=== PATIENT | female | born 1990 | race Caucasian/White ===

== ENCOUNTER 2020-02-08 19:08 | Inpatient (IN) | payer MEDICARE, MEDICAID ==
[~2020-02-08] VITALS: Ht 147.3 cm; Wt 121.1 kg
[~2020-02-08 19:08] MED LIST: ALBUPOW26 NEB; BACL10TA GT; FURO1TAB33 GT; IBUP100S11 GT; LACTCAP35 GT; LEVE100012 GT; LEVO100I GT; LORA0.5T20 GT; MAX35OO GT; NUTR1LIQ GT; POTA10SO11 GT; RANI15SY GT; ZINC TOP
[2020-02-08] MEDS ORDERED: MORPHINE SULFATE 4 MG/ML SYR/VIAL IV PRN (23:30)
[2020-02-08] MEDS ORDERED: ONDANSETRON HCL 4 MG/2 ML VIAL IV PRN (23:30)
[2020-02-08] MEDS ORDERED: ALBUTEROL SULF 2.5 MG/0.5ML(0.5%) NEB SOLN NEB PRN (23:30)
[2020-02-08] MEDS ORDERED: TEMAZEPAM 15 MG CAP PO PRN (23:30)
[2020-02-08 23:54] LABS: Basophils # (auto) 0 10 ^3/uL (0-0.2); Basophils % (auto) 0.4 % (0.0-2.0); Eosinophils # (auto) 0 10 ^3/uL (0-0.8); Eosinophils % (auto) 0.1 % (0.0-7.0); Hematocrit 45.3 % (36.0-46.0); Hemoglobin 15.5 g/dL (12.2-16.2); Lymphocytes % (auto) 11.3 % (10.0-50.0); Mean Corpuscular Hemoglobin 34.7 pg (28.0-32.0); Mean Corpuscular Hgb Conc. 34.2 g/dL (32.0-36.0); Mean Corpuscular Volume 101.3 fL (80.0-100.0); Monocytes # (auto) 0.4 10 ^3/uL (0-1.3); Monocytes % (auto) 4.9 % (0.0-12.0); Neutrophils # (auto) 7.1 10 ^3/uL (1.6-8.6); Neutrophils % (auto) 83.3 % (37.0-80.0); Platelet Count (auto) 169 10^3/uL (140-450); Red Blood Cells 4.48 10^6/uL (4.0-5.20); Red Cell Distribution Width 12.5 % (11.8-14.3); White Blood Cell 8.6 10^3/uL (4.4-10.8)
[2020-02-09 00:09] LABS: Partial Thromboplastin Time 24.4 sec (23.64-32.05)
[2020-02-09 00:16] LABS: Albumin 3.6 g/dL (3.4-5.0); BUN/Creatinine Ratio 22.4; Calcium 9.1 mg/dL (8.5-10.1); Potassium 3.6 mmol/L (3.5-5.1)
[2020-02-09 00:19] LABS: Bilirubin, Total 0.4 mg/dL (0.2-1.0); Total Protein 7.6 g/dL (6.4-8.2)
[2020-02-09] MEDS ORDERED: MORPHINE SULF INJ 2 MG/ML SYRINGE 1ML IV PRN (00:45)
[2020-02-09] MEDS ORDERED: NITROGLYCERIN 0.4 MG SL TAB SL PRN (00:45)
[2020-02-09 01:38] VITALS: BP 115/67
[2020-02-09 05:00] VITALS: BP 95/60
[2020-02-09] MEDS: LEVOTHYROXINE SODIUM 50 MCG TAB PO SCH (06:58)
[2020-02-09 08:50] VITALS: BP 101/67
[2020-02-09] MEDS: FAMOTIDINE 20 MG TAB PO SCH ×2 (09:17→22:42)
[2020-02-09] MEDS: levETIRAcetam 500 MG TAB PO SCH ×2 (09:17→22:42)
[2020-02-09] MEDS: FUROSEMIDE 40 MG TAB GT SCH (09:18)
[2020-02-09] MEDS ORDERED: NUTR1LIQ PO (09:49)
[2020-02-09] MEDS ORDERED: POTA10TA51 PO (09:49)
[2020-02-09] MEDS: HYDROcodone-ACET 5/325MG TAB PO PRN (12:25)
[2020-02-09 13:00] VITALS: BP 105/59
[2020-02-09] MEDS: Osmolite 1.2 Cal One Liter GT SCH (13:05)
[2020-02-09 17:00] VITALS: BP 102/55
[2020-02-09 22:00] VITALS: BP 91/51
[2020-02-10 05:00] VITALS: BP 98/52
[2020-02-10] MEDS: LEVOTHYROXINE SODIUM 50 MCG TAB PO SCH (06:18)
[2020-02-10 08:00] VITALS: BP 107/67
[2020-02-10 09:00] VITALS: BP 93/63
[2020-02-10] MEDS: FAMOTIDINE 20 MG TAB PO SCH ×2 (10:51→21:42)
[2020-02-10] MEDS: levETIRAcetam 500 MG TAB PO SCH ×2 (10:51→21:41)
[2020-02-10] MEDS: FUROSEMIDE 40 MG TAB GT SCH (10:59)
[2020-02-10 13:00] VITALS: BP 100/66
[2020-02-10] MEDS: Osmolite 1.2 Cal One Liter GT SCH (15:53)
[2020-02-10 17:00] VITALS: BP 117/66
[2020-02-10 21:45] VITALS: BP 103/71
[2020-02-11 05:00] VITALS: BP 98/58
[2020-02-11] MEDS: LEVOTHYROXINE SODIUM 50 MCG TAB PO SCH (06:08)
[2020-02-11] MEDS: HYDROcodone-ACET 5/325MG TAB PO PRN ×2 (06:09→12:43)
[2020-02-11] MEDS ORDERED: MORPHINE SULF INJ 2 MG/ML SYRINGE 1ML IV PRN (08:15)
[2020-02-11 09:00] VITALS: BP 94/51
[2020-02-11] MEDS: FUROSEMIDE 40 MG TAB GT SCH (10:08)
[2020-02-11] MEDS: levETIRAcetam 500 MG TAB PO SCH ×2 (10:08→21:26)
[2020-02-11] MEDS: FAMOTIDINE 20 MG TAB PO SCH ×2 (10:08→21:27)
[2020-02-11 13:00] VITALS: BP 94/52
[2020-02-11 17:00] VITALS: BP 91/58
[2020-02-11] MEDS: Osmolite 1.2 Cal One Liter GT SCH (18:21)
[2020-02-11 19:39] VITALS: BP 91/58
[2020-02-11 21:49] VITALS: BP 95/56
[2020-02-12 05:00] VITALS: BP 93/53
[2020-02-12] MEDS: HYDROcodone-ACET 5/325MG TAB PO PRN ×2 (06:26→16:55)
[2020-02-12] MEDS: LEVOTHYROXINE SODIUM 50 MCG TAB PO SCH (06:27)
[2020-02-12 09:00] VITALS: BP 94/53
[2020-02-12] MEDS: levETIRAcetam 500 MG TAB PO SCH ×2 (09:18→21:14)
[2020-02-12] MEDS: FUROSEMIDE 40 MG TAB GT SCH (09:18)
[2020-02-12] MEDS: FAMOTIDINE 20 MG TAB PO SCH ×2 (09:18→21:13)
[2020-02-12 13:00] VITALS: BP 98/59
[2020-02-12 15:35] LABS: Eosinophils # (auto) 0 10 ^3/uL (0-0.8)
[2020-02-12 15:37] LABS: Basophils # (auto) 0.1 10 ^3/uL (0-0.2); Basophils % (auto) 0.9 % (0.0-2.0); Eosinophils % (auto) 0.6 % (0.0-7.0); Hematocrit 42.6 % (36.0-46.0); Hemoglobin 14.3 g/dL (12.2-16.2); Lymphocytes # (auto) 1.4 10 ^3/uL (0.4-5.4); Lymphocytes % (auto) 23.4 % (10.0-50.0); Mean Corpuscular Hemoglobin 34.3 pg (28.0-32.0); Mean Corpuscular Hgb Conc. 33.6 g/dL (32.0-36.0); Mean Corpuscular Volume 102.1 fL (80.0-100.0); Monocytes # (auto) 0.3 10 ^3/uL (0-1.3); Monocytes % (auto) 5.8 % (0.0-12.0); Neutrophils # (auto) 4.2 10 ^3/uL (1.6-8.6); Neutrophils % (auto) 69.3 % (37.0-80.0); Platelet Count (auto) 161 10^3/uL (140-450); Red Blood Cells 4.17 10^6/uL (4.0-5.20); Red Cell Distribution Width 12.2 % (11.8-14.3)
[2020-02-12 16:00] LABS: Calcium 9.3 mg/dL (8.5-10.1); Potassium 3.7 mmol/L (3.5-5.1)
[2020-02-12 16:02] LABS: BUN/Creatinine Ratio 35.4
[2020-02-12 16:55] VITALS: BP 99/57
[2020-02-12] MEDS: ACETAMINOPHEN 650 mg PER 20 mL UD GT PRN (21:15)
[2020-02-12 21:56] VITALS: BP 89/49
[2020-02-13 04:41] VITALS: BP 103/59
[2020-02-13] MEDS: LEVOTHYROXINE SODIUM 50 MCG TAB PO SCH (06:05)
[2020-02-13 08:51] VITALS: BP 97/55
[2020-02-13] MEDS: HYDROcodone-ACET 5/325MG TAB PO PRN (11:27)
[2020-02-13] MEDS: FAMOTIDINE 20 MG TAB PO SCH ×2 (11:27→22:30)
[2020-02-13] MEDS: FUROSEMIDE 40 MG TAB GT SCH (11:27)
[2020-02-13] MEDS: levETIRAcetam 500 MG TAB PO SCH ×2 (11:27→22:30)
[2020-02-13 13:00] VITALS: BP 107/65
[2020-02-13] MEDS ORDERED: GASTROGRAFIN 30 ML SOL ONE (16:56)
[2020-02-13 17:00] VITALS: BP 103/62
[2020-02-13 20:00] VITALS: BP 92/64
[2020-02-13 22:00] VITALS: BP 92/64
[2020-02-14] MEDS: SOD CHL 0.45% 1,000 ML IV SCH ×3 (03:14→21:35)
[2020-02-14 05:00] VITALS: BP 103/60
[2020-02-14] MEDS: LEVOTHYROXINE SODIUM 50 MCG TAB PO SCH (07:17)
[2020-02-14 08:00] VITALS: BP 102/47
[2020-02-14 09:00] VITALS: BP 102/47
[2020-02-14] MEDS: FUROSEMIDE 40 MG TAB GT SCH (10:00)
[2020-02-14] MEDS: FAMOTIDINE 20 MG TAB PO SCH (11:08)
[2020-02-14] MEDS: levETIRAcetam 500 MG TAB PO SCH (11:09)
[2020-02-14 11:32] LABS: Basophils # (auto) 0.1 10 ^3/uL (0-0.2); Eosinophils # (auto) 0 10 ^3/uL (0-0.8); Hemoglobin 12.6 g/dL (12.2-16.2); Lymphocytes # (auto) 1.2 10 ^3/uL (0.4-5.4); Platelet Count (auto) 153 10^3/uL (140-450)
[2020-02-14 11:34] LABS: Basophils % (auto) 1.6 % (0.0-2.0); Eosinophils % (auto) 0.8 % (0.0-7.0); Hematocrit 37.7 % (36.0-46.0); Lymphocytes % (auto) 24.9 % (10.0-50.0); Mean Corpuscular Hemoglobin 34.2 pg (28.0-32.0); Mean Corpuscular Hgb Conc. 33.3 g/dL (32.0-36.0); Mean Corpuscular Volume 102.5 fL (80.0-100.0); Monocytes # (auto) 0.4 10 ^3/uL (0-1.3); Monocytes % (auto) 8.5 % (0.0-12.0); Neutrophils # (auto) 3.2 10 ^3/uL (1.6-8.6); Neutrophils % (auto) 64.2 % (37.0-80.0); Nucleated Red Blood Cells % 0.1 %; Red Blood Cells 3.68 10^6/uL (4.0-5.20); Red Cell Distribution Width 12.2 % (11.8-14.3); White Blood Cell 4.9 10^3/uL (4.4-10.8)
[2020-02-14 11:55] LABS: Albumin 2.7 g/dL (3.4-5.0); Calcium 8.2 mg/dL (8.5-10.1); Potassium 3.3 mmol/L (3.5-5.1)
[2020-02-14 12:01] LABS: BUN/Creatinine Ratio 42.6; Bilirubin, Total 0.5 mg/dL (0.2-1.0); Total Protein 6.4 g/dL (6.4-8.2)
[2020-02-14 13:00] VITALS: BP 100/57
[2020-02-14 17:00] VITALS: BP 107/51
[2020-02-14] MEDS ORDERED: HYDROcodone-ACET 5/325MG TAB GT PRN (20:45)
[2020-02-14] MEDS ORDERED: TEMAZEPAM 15 MG CAP GT PRN (20:45)
[2020-02-14] MEDS: levETIRAcetam 500 MG/5ML ORAL SOLN UD GT SCH (21:34)
[2020-02-14] MEDS: FAMOTIDINE 20 MG TAB GT SCH (21:35)
[2020-02-14 22:00] VITALS: BP 88/46
[2020-02-15] VITALS (7 sets, daily range): BP systolic 88–102; BP diastolic 46–60
[2020-02-15] MEDS: Osmolite 1.2 Cal One Liter GT SCH
[2020-02-15 05:23] LABS: Basophils # (auto) 0.1 10 ^3/uL (0-0.2); Basophils % (auto) 1.3 % (0.0-2.0); Eosinophils # (auto) 0 10 ^3/uL (0-0.8); Hemoglobin 11.1 g/dL (12.2-16.2); Mean Corpuscular Hgb Conc. 33.1 g/dL (32.0-36.0); Neutrophils # (auto) 2.8 10 ^3/uL (1.6-8.6); Red Blood Cells 3.23 10^6/uL (4.0-5.20)
[2020-02-15 05:25] LABS: Hematocrit 33.5 % (36.0-46.0); Lymphocytes % (auto) 24.2 % (10.0-50.0); Mean Corpuscular Hemoglobin 34.4 pg (28.0-32.0); Mean Corpuscular Volume 103.8 fL (80.0-100.0); Monocytes # (auto) 0.4 10 ^3/uL (0-1.3); Neutrophils % (auto) 64.5 % (37.0-80.0); Platelet Count (auto) 137 10^3/uL (140-450); Red Cell Distribution Width 12.3 % (11.8-14.3); White Blood Cell 4.3 10^3/uL (4.4-10.8)
[2020-02-15 05:43] LABS: Albumin 2.5 g/dL (3.4-5.0); Calcium 7.8 mg/dL (8.5-10.1); Potassium 3.8 mmol/L (3.5-5.1)
[2020-02-15 05:49] LABS: Bilirubin, Total 0.5 mg/dL (0.2-1.0); Total Protein 5.8 g/dL (6.4-8.2)
[2020-02-15] MEDS: LEVOTHYROXINE SODIUM 50 MCG TAB GT SCH (06:17)
[2020-02-15] MEDS ORDERED: D5W 5% 1,000 ML IV SCH (09:30)
[2020-02-15] MEDS: levETIRAcetam 500 MG/5ML ORAL SOLN UD GT SCH ×2 (11:35→21:43)
[2020-02-15] MEDS: FAMOTIDINE 20 MG TAB GT SCH ×2 (11:36→21:44)
[2020-02-15] MEDS ORDERED: ALBUMIN 25% 100 ML IV ONE (13:30)
[2020-02-15] MEDS: FREE WATER GT SCH ×3 (15:29→21:43)
[2020-02-16] MEDS: FREE WATER GT SCH ×4 (01:52→18:00)
[2020-02-16 05:00] VITALS: BP 111/56
[2020-02-16] MEDS: LEVOTHYROXINE SODIUM 50 MCG TAB GT SCH (06:12)
[2020-02-16 08:00] VITALS: BP 101/75
[2020-02-16] MEDS: ACETAMINOPHEN 650 mg PER 20 mL UD GT PRN (09:55)
[2020-02-16] MEDS: FAMOTIDINE 20 MG TAB GT SCH ×2 (09:55→21:54)
[2020-02-16] MEDS: levETIRAcetam 500 MG/5ML ORAL SOLN UD GT SCH ×2 (09:56→21:54)
[2020-02-16 10:21] LABS: Basophils # (auto) 0 10 ^3/uL (0-0.2); Eosinophils # (auto) 0 10 ^3/uL (0-0.8); Lymphocytes # (auto) 0.6 10 ^3/uL (0.4-5.4); Monocytes # (auto) 0.2 10 ^3/uL (0-1.3); Red Cell Distribution Width 12.1 % (11.8-14.3); White Blood Cell 4.8 10^3/uL (4.4-10.8)
[2020-02-16 10:22] LABS: Eosinophils % (auto) 0.5 % (0.0-7.0); Hematocrit 33.7 % (36.0-46.0); Hemoglobin 11.5 g/dL (12.2-16.2); Lymphocytes % (auto) 12.2 % (10.0-50.0); Mean Corpuscular Hemoglobin 34.8 pg (28.0-32.0); Mean Corpuscular Hgb Conc. 34.1 g/dL (32.0-36.0); Mean Corpuscular Volume 102.2 fL (80.0-100.0); Monocytes % (auto) 4.2 % (0.0-12.0); Neutrophils # (auto) 3.9 10 ^3/uL (1.6-8.6); Neutrophils % (auto) 82.1 % (37.0-80.0); Platelet Count (auto) 140 10^3/uL (140-450)
[2020-02-16 10:36] LABS: Albumin 3.1 g/dL (3.4-5.0); Calcium 8.5 mg/dL (8.5-10.1); Potassium 3.6 mmol/L (3.5-5.1)
[2020-02-16 10:40] LABS: BUN/Creatinine Ratio 26.9; Bilirubin, Total 0.6 mg/dL (0.2-1.0); Total Protein 6.3 g/dL (6.4-8.2)
[2020-02-16 11:58] VITALS: BP 96/59
[2020-02-16 16:54] VITALS: BP 95/56
[2020-02-16 22:00] VITALS: BP 98/54
[2020-02-17 05:00] VITALS: BP 95/43
[2020-02-17 05:09] LABS: Basophils # (auto) 0 10 ^3/uL (0-0.2); Basophils % (auto) 1.2 % (0.0-2.0); Eosinophils # (auto) 0.1 10 ^3/uL (0-0.8); Eosinophils % (auto) 1.6 % (0.0-7.0); Hematocrit 32.2 % (36.0-46.0); Hemoglobin 10.9 g/dL (12.2-16.2); Lymphocytes # (auto) 1.2 10 ^3/uL (0.4-5.4); Lymphocytes % (auto) 35.6 % (10.0-50.0); Mean Corpuscular Hemoglobin 34.7 pg (28.0-32.0); Mean Corpuscular Volume 102.1 fL (80.0-100.0); Monocytes # (auto) 0.3 10 ^3/uL (0-1.3); Monocytes % (auto) 8.1 % (0.0-12.0); Neutrophils # (auto) 1.8 10 ^3/uL (1.6-8.6); Neutrophils % (auto) 53.5 % (37.0-80.0); Nucleated Red Blood Cells % 0.1 %; Platelet Count (auto) 158 10^3/uL (140-450); Red Blood Cells 3.15 10^6/uL (4.0-5.20); White Blood Cell 3.4 10^3/uL (4.4-10.8)
[2020-02-17 05:28] LABS: Potassium 3.6 mmol/L (3.5-5.1)
[2020-02-17 05:35] LABS: Albumin 2.7 g/dL (3.4-5.0); BUN/Creatinine Ratio 22.8; Bilirubin, Total 0.5 mg/dL (0.2-1.0); Calcium 8.1 mg/dL (8.5-10.1); Total Protein 5.8 g/dL (6.4-8.2)
[2020-02-17] MEDS: FREE WATER GT SCH ×4 (06:00→18:00)
[2020-02-17] MEDS: LEVOTHYROXINE SODIUM 50 MCG TAB GT SCH (06:35)
[2020-02-17 08:00] VITALS: BP 94/54
[2020-02-17 08:49] VITALS: BP 94/54
[2020-02-17] MEDS: levETIRAcetam 500 MG/5ML ORAL SOLN UD GT SCH ×2 (10:00→21:36)
[2020-02-17] MEDS: FAMOTIDINE 20 MG TAB GT SCH ×2 (10:00→21:36)
[2020-02-17] MEDS ORDERED: KETOROLAC TROMETH 30 MG/ML 1ML VIAL ONE (11:40)
[2020-02-17] MEDS ORDERED: VANCOMYCIN HCL 1000 MG VL ONE (11:40)
[2020-02-17] MEDS ORDERED: BUPIVACAINE W/ EPINEPH 0.25% INJ 50ML MDV ONE (11:44)
[2020-02-17] MEDS ORDERED: fentaNYL CITRATE 100 MCG/2 ML VL ONE (11:55)
[2020-02-17] MEDS ORDERED: MIDAZOLAM HCL 1MG/1ML-2 ML VIAL ONE (11:55)
[2020-02-17] MEDS ORDERED: DexAMETHasone SOD PHOS 10MG/1ML VIAL INJ ONE (11:56)
[2020-02-17] MEDS ORDERED: PHENYLEPHRINE HCL 10 MG/ML VL IV ONE (12:25)
[2020-02-17] MEDS ORDERED: PROPOFOL 10 MG/ML 20 ML IV ONE (12:25)
[2020-02-17] MEDS ORDERED: MIDAZOLAM HCL 1MG/1ML-2 ML VIAL IV PRN (13:15)
[2020-02-17] MEDS ORDERED: ePHEDrine SULFATE 50 MG/ML AMP IV PRN (13:15)
[2020-02-17] MEDS ORDERED: MORPHINE SULFATE 4 MG/ML SYR/VIAL IV PRN (13:15)
[2020-02-17 14:12] VITALS: BP 107/50
[2020-02-17 17:00] VITALS: BP 99/52
[2020-02-17 22:00] VITALS: BP 109/58
[2020-02-17 22:11] LABS: INR 1.01 (0.9-1.15)
[2020-02-18] VITALS (7 sets, daily range): BP systolic 87–148; BP diastolic 40–60
[2020-02-18] MEDS: FREE WATER GT SCH ×4 (06:13→18:04)
[2020-02-18] MEDS: LEVOTHYROXINE SODIUM 50 MCG TAB GT SCH (06:14)
[2020-02-18] MEDS: FAMOTIDINE 20 MG TAB GT SCH ×2 (11:33→21:26)
[2020-02-18] MEDS: levETIRAcetam 500 MG/5ML ORAL SOLN UD GT SCH ×2 (11:33→21:26)
[2020-02-18] MEDS: ACETAMINOPHEN 650 mg PER 20 mL UD GT PRN (16:28)
[2020-02-19] MEDS: FREE WATER GT SCH ×4 (00:47→18:48)
[2020-02-19 05:00] VITALS: BP 93/43
[2020-02-19] MEDS: Osmolite 1.2 Cal One Liter GT SCH (05:04)
[2020-02-19] MEDS: LEVOTHYROXINE SODIUM 50 MCG TAB GT SCH (05:12)
[2020-02-19] MEDS: ACETAMINOPHEN 650 mg PER 20 mL UD GT PRN ×2 (05:12→22:10)
[2020-02-19 08:00] VITALS: BP 74/39
[2020-02-19 08:51] VITALS: BP 74/39
[2020-02-19] MEDS: FAMOTIDINE 20 MG TAB GT SCH ×2 (11:58→22:10)
[2020-02-19] MEDS: levETIRAcetam 500 MG/5ML ORAL SOLN UD GT SCH ×2 (11:58→22:10)
[2020-02-19 13:00] VITALS: BP 101/40
[2020-02-19 17:00] VITALS: BP 92/47
[2020-02-19 20:51] VITALS: BP 97/55
[2020-02-19 23:02] LABS: Urine Bacteria MANY /hpf (None Seen); Urine Blood Negative /uL (Negative); Urine Specific Gravity 1.021 (1.001-1.035); Urine WBC 80 /hpf (0 - 5); Urine WBC Clumps PRESENT /hpf (None Seen)
[2020-02-20 00:08] LABS: Red Cell Distribution Width 12.5 % (11.8-14.3)
[2020-02-20 00:11] LABS: Hematocrit 31.5 % (36.0-46.0); Hemoglobin 10.5 g/dL (12.2-16.2); Mean Corpuscular Hemoglobin 33.8 pg (28.0-32.0); Mean Corpuscular Hgb Conc. 33.4 g/dL (32.0-36.0); Mean Corpuscular Volume 101.4 fL (80.0-100.0); Platelet Count (auto) 126 10^3/uL (140-450)
[2020-02-20 00:14] LABS: White Blood Cell 1.5 10^3/uL (4.4-10.8)
[2020-02-20 00:15] LABS: Basophils % (manual) 0 (0.0-2.0); Blast Cells 0; Eosinophils % (manual) 0 (0-7); Myelocytes % 0; Promyelocytes % 0; Reactive Lymphocytes 0
[2020-02-20] MEDS: FREE WATER GT SCH ×3 (00:15→12:00)
[2020-02-20] MEDS: cefTRIAXone 1GM/50ML D5W 50 ML IV SCH ×2 (01:07→09:49)
[2020-02-20 01:12] LABS: Band Neutrophils % (manual) 34; Lymphocytes % (manual) 52 (10.0-50.0); Metamyelocytes % 2; Monocytes % (manual) 4 (0-12)
[2020-02-20] MEDS: LEVOTHYROXINE SODIUM 50 MCG TAB GT SCH (05:52)
[2020-02-20 06:15] VITALS: BP 90/57
[2020-02-20 09:00] VITALS: BP 86/48
[2020-02-20] MEDS: levETIRAcetam 500 MG/5ML ORAL SOLN UD GT SCH (09:49)
[2020-02-20] MEDS: FAMOTIDINE 20 MG TAB GT SCH (09:50)
[2020-02-20 11:51] VITALS: BP 94/57
[2020-02-20 13:00] VITALS: BP 95/48
== END 2020-02-20 15:30 | disposition home health service (06) | DRG 563 ==
LOC: ER 19:08 → EDBD 19:08 → OVERFLOW 19:09 → CENTRAL 02-09 01:17
PROVIDERS: ADMIT Nurse Practitioner; ATTEND Family Medicine
PROC: 5A1955Z Respiratory Ventilation, Greater than 96 Consecutive Hours (ICD-10-PCS; principal; 2020-02-13)
PROC: 0D20XUZ Change Feeding Device in Upper Intestinal Tract, External Approach (ICD-10-PCS; 2020-02-13)
PROC: 0QSKXZZ Reposition Left Fibula, External Approach (ICD-10-PCS; 2020-02-17)
PROC: 0QSHXZZ Reposition Left Tibia, External Approach (ICD-10-PCS; 2020-02-17)
PROC: 2W3MX2Z Immobilization of Left Lower Extremity using Cast (ICD-10-PCS; 2020-02-17)
DX: S82.252A Displaced comminuted fracture of shaft of left tibia, initial encounter for closed fracture (principal); E87.0 Hyperosmolality and hypernatremia; J96.10 Chronic respiratory failure, unspecified whether with hypoxia or hypercapnia; K94.23 Gastrostomy malfunction; Z68.43 Body mass index [BMI] 50.0-59.9, adult; E03.9 Hypothyroidism, unspecified; S82.442A Displaced spiral fracture of shaft of left fibula, initial encounter for closed fracture; G80.9 Cerebral palsy, unspecified; K21.9 Gastro-esophageal reflux disease without esophagitis; I11.0 Hypertensive heart disease with heart failure; I50.9 Heart failure, unspecified; J44.9 Chronic obstructive pulmonary disease, unspecified; M85.80 Other specified disorders of bone density and structure, unspecified site; Q90.9 Down syndrome, unspecified; Z74.01 Bed confinement status; Z80.0 Family history of malignant neoplasm of digestive organs; Z81.8 Family history of other mental and behavioral disorders; Z83.3 Family history of diabetes mellitus; Z85.6 Personal history of leukemia; Z86.61 Personal history of infections of the central nervous system; D64.9 Anemia, unspecified; Z88.2 Allergy status to sulfonamides; W22.03XA Walked into furniture, initial encounter; Y93.89 Activity, other specified; Y92.89 Other specified places as the place of occurrence of the external cause; Y99.0 Civilian activity done for income or pay; Y83.3 Surgical operation with formation of external stoma as the cause of abnormal reaction of the patient, or of later complication, without mention of misadventure at the time of the procedure; Z03.818 Encounter for observation for suspected exposure to other biological agents ruled out
CPT/HCPCS: 31720; 36415; 71045; 73590; 74018; 76000; 80048; 80053; 81001; 84702; 85007; 85025; 85027; 85610; 85730; 86850; 86900; 86901; 93306; 94640; 94760; 96374; A4605; G0378; J0696; J1100; J1885; J2250; J2704; P9047